=== PATIENT | male | born 1965 | race Caucasian/White ===

== ENCOUNTER 2016-05-09 16:51 | Emergency (ER) | payer SELFPAY ==
[~2016-05-09] VITALS: Ht 180.3 cm; Wt 120.0 kg
[~2016-05-09 16:51] MED LIST: 1-ME1LIQ PO; IBUP800T23 PO; LISI-363 PO; METF500 PO
[2016-05-09 16:53] VITALS: BP 184/111; PULSE 128; RESP 24; TEMP 97.5; O2SAT 97
--- NOTE | 2016-05-09 18:58 | PD ---
HPI Chief Complaint: Flank/Kidney Pain Time Seen by Provider: 18:55 Travel History International Travel<30 days: No Contact w/Intl Traveler<30days: No Traveled to known affect area: No History of Present Illness HPI Patient is a 50-year-old male presenting to the emergency evaluation of right flank pain. Patient states the pain started 3 days ago, his pain is a 7 on a 10 he describes as aching, throbbing and shooting. Examination reports urinary hesitancy but denies any hematuria or frequency. He denies any fever, chills, chest pain, shortness of breath. He reports nausea but no vomiting and has had very poor oral intake for the last 3 days. Patient has trialed ibuprofen, Flexeril for the pain with no relief of his symptoms. Patient has history of kidney stones in the past as well as hypertension. PFSH Past Medical History Diverticulitis: Yes Hypertension: Yes Inguinal Hernia: Yes Kidney Stones: Yes Social History Alcohol Use: No (QUIT IN 1987) Tobacco Use: Yes (1/2 PACK DAILY) Substance Use: No Allergies-Medications (Allergen,Severity, Reaction): Coded Allergies: No Known Allergies (Verified , 05/09/16) Reported Meds & Prescriptions Reported Meds & Active Scripts Active Amlodipine Besylate 10 mg (Amlodipine Besylate) 10 Mg Tab 1 Tab PO DAILY Glucophage 500 mg (Metformin HCl) 500 Mg Tab 500 Mg PO BIDPC Lisinopril 20 mg (Lisinopril) 20 Mg Tab 20 Mg PO BID Reported Ibuprofen 800 Mg Tab 800 Mg PO TID Review of Systems Except as stated in HPI: all other systems reviewed are Neg General / Constitutional: No: Fever, Chills HENT: No: Headaches Cardiovascular: No: Chest Pain or Discomfort Respiratory: No: Shortness of Breath Gastrointestinal: Positive: Nausea, No: Vomiting, Diarrhea, Abdominal Pain Genitourinary: Positive: Hesitancy, Flank Pain, No: Hematuria Physical Exam Narrative GENERAL: Obese, well-developed, alert male. Appears uncomfortable, in no acute distress. SKIN: Warm and dry. HEAD: Atraumatic. Normocephalic. EYES: Pupils equal and round. No scleral icterus. No injection or drainage. ENT: No nasal bleeding or discharge. Mucous membranes pink and moist. NECK: Trachea midline. No JVD. CARDIOVASCULAR: Tachycardic. No murmur appreciated. RESPIRATORY: No accessory muscle use. Clear to auscultation. Breath sounds equal bilaterally. GASTROINTESTINAL: Abdomen soft, non-tender, nondistended. Hepatic and splenic margins not palpable. Positive CVAT on the right MUSCULOSKELETAL: No obvious deformities. No clubbing. No cyanosis. No edema. NEUROLOGICAL: Awake and alert. No obvious cranial nerve deficits. Motor grossly within normal limits. Normal speech. PSYCHIATRIC: Appropriate mood and affect; insight and judgment normal. Data Data Last Documented VS Vital Signs Date Time Temp Pulse Resp B/P Pulse Ox O2 Delivery O2 Flow Rate FiO2 05/09/16 16:53 97.5 128 24 184/111 97 Orders Complete Blood Count With Diff (05/09/16 18:54) Comprehensive Metabolic Panel (05/09/16 18:54) Urinalysis - C+S If Indicated (05/09/16 18:54) Ct Abd/Pel W/O Iv Contrast (05/09/16 18:54) Ketorolac Inj (Toradol Inj) (05/09/16 19:00) Ondansetron Inj (Zofran Inj) (05/09/16 19:00) Labs Laboratory Tests Test 05/09/16 19:19 White Blood Count 11.2 TH/MM3 Red Blood Count 5.39 MIL/MM3 Hemoglobin 16.0 GM/DL Hematocrit 46.8 % Mean Corpuscular Volume 86.9 FL Mean Corpuscular Hemoglobin 29.8 PG Mean Corpuscular Hemoglobin 34.3 % Concent Red Cell Distribution Width 13.9 % Platelet Count 253 TH/MM3 Mean Platelet Volume 7.6 FL Neutrophils (%) (Auto) 75.2 % Lymphocytes (%) (Auto) 16.8 % Monocytes (%) (Auto) 5.7 % Eosinophils (%) (Auto) 1.7 % Basophils (%) (Auto) 0.6 % Neutrophils # (Auto) 8.4 TH/MM3 Lymphocytes # (Auto) 1.9 TH/MM3 Monocytes # (Auto) 0.6 TH/MM3 Eosinophils # (Auto) 0.2 TH/MM3 Basophils # (Auto) 0.1 TH/MM3 CBC Comment DIFF FINAL Differential Comment Urine Color LIGHT-YELLOW Urine Turbidity CLEAR Urine pH 5.5 Urine Specific [place] 1.015 Urine Protein NEG mg/dL Urine Glucose (UA) NEG mg/dL Urine Ketones NEG mg/dL Urine Occult Blood NEG Urine Nitrite NEG Urine Bilirubin NEG Urine Urobilinogen LESS THAN 2.0 MG/DL Urine Leukocyte Esterase NEG Urine WBC LESS THAN 1 /hpf Microscopic Urinalysis Comment CULT NOT INDICATED MDM Medical Decision Making Medical Screen Exam Complete: Yes Emergency Medical Condition: Yes Interpretation(s) Vital Signs Date Time Temp Pulse Resp B/P Pulse Ox O2 Delivery O2 Flow Rate FiO2 05/09/16 16:53 97.5 128 24 184/111 97 Differential Diagnosis Kidney stone versus muscle spasm versus strain versus discogenic pain versus pyelonephritis versus other Narrative Course Patient's 51-year-old male presenting to the emergency reevaluation of right low back and flank pain that started 3 days ago. Workup initiated triage, care of patient will be transferred to a provider when the medical benefits available. Toradol and Zofran ordered for pain and nausea. Sandhya Dill [facility] May 09, 2016 18:58
[2016-05-09] MEDS ORDERED: ONDANSETRON HCL 4 MG/2 ML VIAL IM ONE (19:00)
[2016-05-09] MEDS ORDERED: KETOROLAC TROMETHAMINE 30 MG/ML (IVP) VIAL IM ONE (19:00)
--- NOTE | 2016-05-09 19:27 | RADRPT ---
EXAM DATE/TIME: 05/09/2016 19:07 [place] COMPARISON: No previous studies available for comparison. INDICATIONS : Right flank pain for 2 days. ORAL CONTRAST: No oral contrast ingested. RADIATION DOSE: 13.51 CTDIvol (mGy) MEDICAL HISTORY : Renal calculi. Hernia, inguinal. Diverticulitis.Hypertension. SURGICAL HISTORY : Inguinal hernia repair. ENCOUNTER: Initial ACUITY: 2 days PAIN SCALE: 8/10 LOCATION: Right flank Abdomen/pelvis TECHNIQUE: Volumetric scanning of the abdomen and pelvis was performed. Using automated exposure control and ad justment of the mA and/or kV according to patient size, radiation dose was kept as low as reasonably achievable to obtain optimal diagnostic quality images. FINDINGS: LOWER LUNGS: The visualized lower lungs are clear. LIVER: Homogeneous density without lesion. There is no dilation of the biliary tree. No calcified gallston es. SPLEEN: Normal size without lesion. PANCREAS: Within normal limits. KIDNEYS: Normal in size and shape. There is no mass or hydronephrosis. There are multiple small nonobstructin g bilateral renal calculi. On the right there are 4 small calculi measuring from 1 mm to approximatel y 7 mm. On the left there are 6 small nonobstructing calculi ranging in size from 1 mm to approximate ly 5 mm. Ureters are unremarkable in appearance. ADRENAL GLANDS: Within normal limits. VASCULAR: There is no aortic aneurysm. BOWEL/MESENTERY: The stomach, small bowel, and colon demonstrate no acute abnormality. There is no free intraperitone al air or fluid. ABDOMINAL WALL: Within normal limits. RETROPERITONEUM: There is no lymphadenopathy. BLADDER: No wall thickening or mass. REPRODUCTIVE: Within normal limits. INGUINAL: There is no lymphadenopathy or hernia. MUSCULOSKELETAL: Within normal limits for patient age. CONCLUSION: 1. Multiple bilateral small nonobstructing renal calculi. 2. No evidence of hydronephrosis. Alexandr Castaneda MD on May 09, 2016 at 19:23 Board Certified Radiologist. This report was verified electronically.
[2016-05-09 19:38] LABS: BLOOD, URINE NEG (NEG); COMMENT (UR) CULT NOT INDICATED; CULTURE IF INDICATED CULT NOT INDICATED; GLUCOSE,URINE NEG (NEG); KETONE, URINE NEG (NEG); NITRITE,URINE NEG (NEG); PH, URINE 5.5 (5.0-8.5); URINE COLOR LIGHT-YELLOW (YELLW/STRAW)
[2016-05-09 19:41] LABS: AUTOMATED NEUTROPHIL # 8.4 TH/MM3 (1.8-7.7); BASOPHIL # 0.1 TH/MM3 (0-0.2); BASOPHIL % 0.6 % (0.0-2.0); EOSINOPHIL # 0.2 TH/MM3 (0-0.4); EOSINOPHIL % 1.7 % (0.0-4.0); HEMATOCRIT 46.8 % (39.0-51.0); HEMO FLAGS DIFF FINAL; LYMPH % 16.8 % (9.0-44.0); LYMPHOCYTE # 1.9 TH/MM3 (1.0-4.8); MEAN CELL VOLUME 86.9 FL (80.0-100.0); MEAN CORPUSCULAR HEMOGLOBIN 29.8 PG (27.0-34.0); MEAN CORPUSCULAR HGB CONC 34.3 % (32.0-36.0); MONO % 5.7 % (0.0-8.0); NEUT % 75.2 % (16.0-70.0); PLATELET COUNT 253 TH/MM3 (150-450); RED BLOOD COUNT 5.39 MIL/MM3 (4.50-5.90); RED CELL DISTRIBUTION WIDTH 13.9 % (11.6-17.2); WHITE BLOOD COUNT 11.2 TH/MM3 (4.0-11.0)
[2016-05-09 20:01] LABS: ALT (GPT) 28 U/L (12-78); ANION GAP 6 MEQ/L (5-15); AST (GOT) 19 U/L (15-37); BICARBONATE 26.6 MEQ/L (21.0-32.0); BLOOD UREA NITROGEN 16 MG/DL (7-18); CHLORIDE 109 MEQ/L (98-107); GLOMERULAR FILTRATION RATE 51 ML/MIN (>89); POTASSIUM 4.4 MEQ/L (3.5-5.1); SODIUM (NA) 142 MEQ/L (136-145)
[2016-05-09 20:04] LABS: ALKALINE PHOSPHATASE 80 U/L (45-117); TOTAL BILIRUBIN ADULT 0.2 MG/DL (0.2-1.0)
[2016-05-09 20:07] VITALS: BP 174/118; PULSE 101; RESP 20; TEMP 98.2; O2SAT 96
[2016-05-09] MEDS ORDERED: LISI-515 PO (20:23)
[2016-05-09] MEDS ORDERED: AMLO10TA2 PO ×2 (20:23→22:53)
[2016-05-09] MEDS ORDERED: MORPHINE SULFATE 8 MG/ML INJ IV PUSH ONE (21:15)
[2016-05-09 21:19] VITALS: BP 178/122
[2016-05-09] MEDS ORDERED: IBUP-232 PO (22:38)
[2016-05-09] MEDS ORDERED: TAMS5CAP PO (22:38)
--- NOTE | 2016-05-09 22:38 | PD ---
Physical Exam Narrative Pt was initially seen at triage and transferred to medical bed. I, Dr. Black, have reviewed the advance practice practitioner's documentation and am in agreement, met with the patient face to face, made the diagnosis, and the medical decision making was done by me. *My assessment and Findings: Nephrolithiasis vs. pyelonephritis vs. musculoskeletal pain 51yo M with PMH of HTN (ran out of lisinopril for a few days), nephrolithiasis presents to the ED with c/o right flank pain for 3 days. States it feels like his kidney stone. +Nausea. Denies any fever, chest pain, sob, vomiting, testicular or penile pain. Labs reviewed, mild leukocytosis at 11.2. Creatinine mildly elevated from baseline at 1.46. UA negative for leukocyte or nitrite. No blood. CTa/p showed multiple bilateral small nonobstructing renal calculi. No evidence of hydronephrosis. Pt initially given toradol but continue to have a lot of pain so morphine was given. Pt had no more pain after morphine. Pt tolerating PO. Pt was initially tachycardic but HR normalized after pain medication. Pt's bp is elevated secondary to noncompliance with HTN medication. Hydralazine 10mg IV given. Return precautions given. Data Data Last Documented VS Vital Signs Date Time Temp Pulse Resp B/P Pulse Ox O2 Delivery O2 Flow Rate FiO2 05/09/16 22:47 198/128 05/09/16 21:18 24 05/09/16 20:08 101 05/09/16 20:07 98.2 96 Orders Complete Blood Count With Diff (05/09/16 18:54) Comprehensive Metabolic Panel (05/09/16 18:54) Urinalysis - C+S If Indicated (05/09/16 18:54) Ct Abd/Pel W/O Iv Contrast (05/09/16 18:54) Ketorolac Inj (Toradol Inj) (05/09/16 19:00) Ondansetron Inj (Zofran Inj) (05/09/16 19:00) Morphine Inj (Morphine Inj) (05/09/16 21:15) Hydralazine Inj (Apresoline Inj) (05/09/16 23:00) Labs Laboratory Tests Test 05/09/16 19:19 White Blood Count 11.2 TH/MM3 Red Blood Count 5.39 MIL/MM3 Hemoglobin 16.0 GM/DL Hematocrit 46.8 % Mean Corpuscular Volume 86.9 FL Mean Corpuscular Hemoglobin 29.8 PG Mean Corpuscular Hemoglobin 34.3 % Concent Red Cell Distribution Width 13.9 % Platelet Count 253 TH/MM3 Mean Platelet Volume 7.6 FL Neutrophils (%) (Auto) 75.2 % Lymphocytes (%) (Auto) 16.8 % Monocytes (%) (Auto) 5.7 % Eosinophils (%) (Auto) 1.7 % Basophils (%) (Auto) 0.6 % Neutrophils # (Auto) 8.4 TH/MM3 Lymphocytes # (Auto) 1.9 TH/MM3 Monocytes # (Auto) 0.6 TH/MM3 Eosinophils # (Auto) 0.2 TH/MM3 Basophils # (Auto) 0.1 TH/MM3 CBC Comment DIFF FINAL Differential Comment Urine Color LIGHT-YELLOW Urine Turbidity CLEAR Urine pH 5.5 Urine Specific [place] 1.015 Urine Protein NEG mg/dL Urine Glucose (UA) NEG mg/dL Urine Ketones NEG mg/dL Urine Occult Blood NEG Urine Nitrite NEG Urine Bilirubin NEG Urine Urobilinogen LESS THAN 2.0 MG/DL Urine Leukocyte Esterase NEG Urine WBC LESS THAN 1 /hpf Microscopic Urinalysis Comment CULT NOT INDICATED Sodium Level 142 MEQ/L Potassium Level 4.4 MEQ/L Chloride Level 109 MEQ/L Carbon Dioxide Level 26.6 MEQ/L Anion Gap 6 MEQ/L Blood Urea Nitrogen 16 MG/DL Creatinine 1.46 MG/DL Estimat Glomerular Filtration 51 ML/MIN Rate Random Glucose 95 MG/DL Calcium Level 8.6 MG/DL Total Bilirubin 0.2 MG/DL Aspartate Amino Transf 19 U/L (AST/SGOT) Alanine Aminotransferase 28 U/L (ALT/SGPT) Alkaline Phosphatase 80 U/L Total Protein 7.0 GM/DL Albumin 3.8 GM/DL [facility] Supervised Visit with CUATE: Yes Diagnosis Primary Impression: Nephrolithiasis Patient Instructions: General Instructions Departure Forms: Tests/Procedures Additional Instruction: Please follow up with PMD in 1-2 days regarding your elevated blood pressure. Return to the ED if symptoms worsen. Med/Other Pt SpecificInfo: Prescription(s) given Scripts Amlodipine 10 Mg Tab10 Mg PO DAILY 14 Days Ref 0 Prov:Arelis Black DO 05/09/16 Ibuprofen 600 Mg [id number] Mg PO Q8HR PRN (PAIN) #20 TAB Ref 0 Prov:Arelis Black DO 05/09/16 Tamsulosin (Flomax)0.4 Mg Cap0.4 Mg PO HS 7 Days Ref 0 Prov:Arelis Black DO 05/09/16 Disposition: 01 DISCHARGE HOME Condition: Stable Arelis Black DO May 09, 2016 22:38
[2016-05-09 22:47] VITALS: BP 198/128
[2016-05-09] MEDS ORDERED: hydrALAZINE HCL 20 MG/ML VIAL IV PUSH ONE (23:00)
[2016-05-10 00:11] VITALS: BP 176/105; PULSE 72; RESP 20; O2SAT 100
== END 2016-05-10 00:13 | disposition home or self-care (01) ==
LOC: NEPA 16:51
DX: N20.0 Calculus of kidney (principal); D72.829 Elevated white blood cell count, unspecified; I10 Essential (primary) hypertension; Z91.14 Patient's other noncompliance with medication regimen; R11.0 Nausea; Z87.442 Personal history of urinary calculi
CPT/HCPCS: 74176; 80053; 81001; 85025; 96372; 96374; 96375; 99284; J0360; J1885; J2270; J2405